=== PATIENT | male | born 1950 | race Caucasian/White ===

== ENCOUNTER 2017-02-22 12:07 | Observation (INO) ==
[2017-02-22] MEDS ORDERED: ONDANSETRON 4 MG/2 ML VIAL IV ONE (12:16)
[2017-02-22] MEDS ORDERED: 0.9 % SODIUM CHLORIDE 1,000 ML IV ONE (12:16)
[2017-02-22] MEDS: HYDROmorphone 2 MG/ML SYRINGE IV PRN ×3 (12:51→15:46)
[2017-02-22 13:01] LABS: Basophils # (Auto) 0 K/mcL (0.0-0.3); Basophils % (Auto) 0.3 % (0.0-2.0); Eosinophils # (Auto) 0.1 K/mcL (0.0-0.7); Eosinophils % (Auto) 0.4 % (0.0-7.0); Granulocytes % (Auto) 85.5 % (38.0-78.0); Lymphocytes # (Auto) 1.3 K/mcL (1.5-4.8); Lymphocytes % (Auto) 9.3 % (15.5-49.0); Mean Cell Volume 89.6 fL (80.0-100.0); Mean Corpuscular HGB Conc 33.4 g/dL (31.0-36.0); Monocytes # (Auto) 0.6 K/mcL (0.1-0.9); Monocytes % (Auto) 4.5 % (1.0-12.0); Platelet Count 274 K/mcL (140-440); RBC 4.88 M/mcL (4.50-5.90); Red Cell Distribution Width 14.1 % (11.5-14.5)
--- NOTE | 2017-02-22 13:03 | Emergency Department Note ---
Abdominal Pain HPI - General Chief Complaint: Abdominal Pain Stated Complaint: Gallbladder problems Time Seen by Provider: 02/22/17 12:15 Source: patient Mode of arrival: ambulatory Limitations: no limitations - History of Present Illness HPI Narrative: Patient presents, epigastric pain and right upper quadrant. Began several days ago, better after an ER visit in [place]. Scheduled to see general surgery, Dr. Jose on Friday. Symptoms recurred overnight, not quite as severe. Radiating across to his back. Nausea with emesis. She does better after throwing up. No hematemesis, no melena. Reports that he has a bad gallbladder. Otherwise in good health. No fevers or chills, no shortness of breath no chest pain. No history of heart disease, no blood thinning agents. - Related Data Home Medications Medication Instructions Recorded Confirmed Aspirin [Ecotrin] 81 mg PO DAILY 02/22/17 02/22/17 Lisinopril/Hctz 20/12.5MG 1 tablet PO DAILY 02/22/17 02/22/17 [Zestoretic 20/12.5MG] Meloxicam 7.5 mg PO DAILY 02/22/17 02/22/17 Metoprolol Succinate [Toprol Xl] 50 mg PO DAILY 02/22/17 02/22/17 Omeprazole [PriLOSEC] 20 mg PO ACB 02/22/17 02/22/17 Terazosin [Hytrin] 5 mg PO DAILY 02/22/17 02/22/17 Allergies Allergy/AdvReac Type Severity Reaction Status Date / Time Sulfa (Sulfonamide Allergy Unknown Itching Verified 02/22/17 12:12 Antibiotics) Review of Systems All systems ED: reviewed and negative except as stated. Abdominal Pain PMH - Past Medical History Attestation: Yes: The following information was validated with the patient. Medical history: Reports: no medical history, hypertension. Denies: coronary artery disease, diabetes Surgical history ED: Reports: appendectomy Family history: Reports: no significant family history - Social History Smoking status: Never smoker Physical Exam Limitations: no limitations General appearance: alert, anxious, in distress Head: atraumatic Eye: Present: normal appearance. Absent: scleral icterus ENT: normal exam, mucous membranes moist Neck: Present: normal inspection Chest: Present: normal inspection Respiratory: Present: normal lung sounds bilaterally. Absent: respiratory distress Cardiovascular: Present: regular rate, normal rhythm. Absent: systolic murmur Abdominal: Present: soft, tenderness, Granados's sign. Absent: distention, guarding, rebound Abdominal tenderness: Present: RUQ, epigastrium Extremities: Present: normal inspection Back: Present: normal inspection. Absent: CVA tenderness (R), CVA tenderness (L ) Neurological: Present: alert, oriented X3 Psychiatric: Present: normal affect Skin: Present: warm, dry Course Vital Signs Temperature 98.5 F 02/22/17 12:08 Pulse Rate 99 H 02/22/17 12:08 Respiratory Rate 20 02/22/17 12:08 Blood Pressure 140/88 02/22/17 12:08 Pulse Oximetry (%) 97 02/22/17 12:08 Temperature 98.5 F 02/22/17 12:08 Pulse Rate 87 02/22/17 13:27 Respiratory Rate 20 02/22/17 12:08 Blood Pressure 109/86 02/22/17 13:00 Pulse Oximetry (%) 96 02/22/17 13:27 Abdominal Pain - Lab Data Lab results reviewed: Yes I reviewed the patient's lab results. Result diagrams: 02/22/17 12:39 02/22/17 12:39 Lab Results 02/22/17 02/22/17 Range/Units 12:39 12:39 WBC 14.0 H (4.5-11.0) K/mcL RBC 4.88 (4.50-5.90) M/mcL Hgb 14.6 (13.5-16.5) g/dL Hct 43.7 (41.0-55.0) % MCV 89.6 (80.0-100.0) fL MCH 30.0 (26.0-34.0) pg MCHC 33.4 (31.0-36.0) g/dL RDW 14.1 (11.5-14.5) % Plt Count 274 (140-440) K/mcL MPV 7.7 (7.4-10.4) fL Gran % 85.5 H (38.0-78.0) % Lymph % (Auto) 9.3 L (15.5-49.0) % [place] % (Auto) 4.5 (1.0-12.0) % Eos % (Auto) 0.4 (0.0-7.0) % Baso % (Auto) 0.3 (0.0-2.0) % Gran # 12.0 H (1.8-8.0) K/mcL Lymph # (Auto) 1.3 L (1.5-4.8) K/mcL [place] # (Auto) 0.6 (0.1-0.9) K/mcL Eos # (Auto) 0.1 (0.0-0.7) K/mcL Baso # (Auto) 0 (0.0-0.3) K/mcL Sodium 138 (133-145) mmol/L Potassium 3.6 (3.3-5.1) mmol/L Chloride 99 (96-108) mmol/L Carbon Dioxide 24 (22-30) mmol/L Anion Gap 15.0 (8-16) BUN 23 (8-23) mg/dl Creatinine 0.9 (0.7-1.2) mg/dl GFR Calculation 87 Glucose 117 H (70-105) mg/dL Calcium 8.7 (8.6-10.4) mg/dl Total Bilirubin 1.6 H (0.0-1.0) mg/dL AST 33 (0-37) U/l ALT 52 H (0-40) U/l Alkaline Phosphatase 40 (39-117) U/L Total Protein 6.8 (5.9-8.4) gm/dL Albumin 4.0 (3.2-5.2) gm/dL Globulin 2.8 (2.2-3.7) gm/dL Albumin/Globulin Ratio 1.4 (1.0-2.3) Amylase 46 (28-100) U/L Lipase 31 (7-60) U/L - Radiology Data Radiology results reviewed: Yes I reviewed the patient's radiology results. large obstructing stone in GB neck; no stranding Disposition Pt seen by TRANSPORTATION CLERK/PA only: No Clinical Impression: Acute calculous cholecystitis Summary: Dr Jose, surgery aware, accepting. Planning surgery tomorrow Disposition: Xfer As Outpt/Obs ([facility]) Condition: Fair Referrals: Dylon Guerrero DO [Primary Care Provider] -
[2017-02-22 13:18] LABS: ALT/SGPT 52 U/l (0-40); Albumin/Globulin Ratio 1.4 (1.0-2.3); Alkaline Phosphatase 40 U/L (39-117); Amylase 46 U/L (28-100); Blood Urea Nitrogen 23 mg/dl (8-23); Lipase 31 U/L (7-60)
[2017-02-22] MEDS ORDERED: PROMETHAZINE 25 MG/ML VIAL IM PRN (14:34)
--- NOTE | 2017-02-22 15:06 | Ultrasound Report ---
CLINICAL INFORMATION: Right upper quadrant pain COMPARISON: None. FINDINGS: Liver is normal in size and echotexture. There are two simple cysts in the right hepatic lobe 1.8 and 3.4 cm respectively. No significant hepatic lesions. 2.1 cm solitary stone in the gallbladder neck. Gallbladder wall is normal thickness: 2 mm and there is no focal tenderness to suggest cholecystitis. Common bile duct is normal: 5 mm. No free fluid IMPRESSION: Solitary 2.1 cm stone in the gallbladder neck. No evidence of cholecystitis. Bile ducts, liver and pancreas are unremarkable Interpreted and Authenticated by: Andry Graves 02/22/17
[2017-02-22] MEDS ORDERED: PIPERACILLIN SODIUM/TAZOBACTAM 3.375 GM VIAL IV ONE (15:27)
[2017-02-22] MEDS: PIPERACILLIN SODIUM/TAZOBACTAM 3.375 GM in DEXTROSE 5% IN WATER 50 ML IV SCH ×2 (15:35→22:45)
[2017-02-22] MEDS ORDERED: PROMETHAZINE 25 MG/ML VIAL IV PRN (15:36)
[2017-02-22] MEDS ORDERED: HYDROmorphone 2 MG/ML SYRINGE IV PRN (15:49)
[2017-02-22] MEDS ORDERED: ONDANSETRON 4 MG/2 ML VIAL IV PRN (15:49)
[2017-02-22] MEDS: LACTATED RINGERS 1,000 ML IV SCH (16:32)
--- NOTE | 2017-02-22 17:58 | General Surg History&Physical ---
History of Present Illness Patient information: Note initiated : 02/22/17 at 5:56 pm Service Date, if different from initiated Date: [] Patient: Gianni Veliz a 67 y/o M admitted on 02/22/17 for Gallbladder problems. Chief Complaint: [Recurrent abdominal pain nausea and vomiting] HPI: Mr. Veliz is a 67 year old M admitted with acute cholecystitis and cholelithiasis. The patient had onset of severe abdominal pain in the late evening of 20 February 2017. He had upper abdominal pain that localized to the right upper quadrant followed by recurrent episodes of nausea and vomiting. He was seen at [facility] in [place] and was noted to have cholelithiasis with a stone impacted in the cystic duct. He was treated symptomatically and his symptoms resolved. I discussed his situation with the physicians at that facility and the plan was to see him on Friday. He developed severe abdominal pain earlier this morning and this was followed by nausea and vomiting. He was seen in the emergency room where he was noted to have a tender right upper quadrant and elevated white blood count of 14,600. He is admitted with acute cholecystitis and will need to have urgent cholecystectomy. Review of Systems - Constitutional headache(s), no fatigue, no malaise, no weight loss - EENT Nose, mouth and throat: no abnormal hearing, no dysphagia - Cardiovascular irregular heart rhythm, no chest pain with activity, no dyspnea on exertion, no palpatations, no slow heart rate - Respiratory no cough, no dyspnea on exertion, no wheezing, no chest congestion - Gastrointestinal abdominal pain, heartburn, nausea, vomiting - Genitourinary nocturia - Musculoskeletal arthralgias, back pain, joint swelling, stiffness (In the morning), no abnormal gait, no myalgias - Integumentary no new lesions, no non-healing lesions, no pruritus, no rash, no jaundice - Neurological no abnormal gait, no abnormal hearing - Psychiatric no anxiety, no confusion - Endocrine no fatigue - Hematologic/Lymphatic no easy bleeding, no easy bruising, no lymphadenopathy - Allergic/Immunologic no tongue swelling, no throat swelling, no uticaria, no wheezing, no lip swelling Past History Past medical history: Hypertension Degenerative joint disease Past surgical history: Appendectomy Past family history: Mom at age 71 due to congestive heart failure Dad age 93 due to bone cancer Past social history: Employed Never smoker Occasional beer drinker Never drug use Medications and Allergies Home Medications Medication Instructions Recorded Confirmed Type Aspirin [Ecotrin] 81 mg PO DAILY 02/22/17 02/22/17 History Lisinopril/Hctz 20/12.5MG 1 tablet PO DAILY 02/22/17 02/22/17 History [Zestoretic 20/12.5MG] Meloxicam 7.5 mg PO DAILY 02/22/17 02/22/17 History Metoprolol Succinate [Toprol Xl] 50 mg PO DAILY 02/22/17 02/22/17 History Omeprazole [PriLOSEC] 20 mg PO ACB 02/22/17 02/22/17 History Terazosin [Hytrin] 5 mg PO HS 02/22/17 02/22/17 History Allergies Allergy/AdvReac Type Severity Reaction Status Date / Time Sulfa (Sulfonamide Allergy Unknown Itching Verified 02/22/17 12:12 Antibiotics) Exam Temp Pulse Resp BP Pulse Ox 98.2 F 88 16 132/83 93 02/22/17 15:56 02/22/17 15:56 02/22/17 15:56 02/22/17 15:56 02/22/17 15:56 - General physical appearance well developed, well nourished, no distress - Eyes PERRL, normal ocular movement. negative: icteric - ENT normal pinna, normal nares, normal mucosa, no hearing loss, no congestion - Head Head exam IM: Present: atraumatic, normal inspection, normocephalic - Neck no masses, no bruits, trachea midline, no lymphadectomy, no venous distension - Cardiovascular Cardiovascular exam IM: Present: normal rate and rhythm, irregular rhythm, +S1, +S2. Absent: gallop, JVD, systolic murmur - Respiratory normal expansion, normal respiratory effort, clear to percussion, clear to auscultation - Abdomen Abdomen: Present: soft, tender (Right upper quadrant tenderness with guarding; good active bowel sounds; no palpable mass), bowel sounds Hernia: Present: none - Genitourinary Present: normal penis with no external lesions - Integumentary Present: no rash, no growths, no abnormal pigmentation - Neurologic Present: normal coordination, normal sensation - Musculoskeletal Present: normal gait, normal posture - Psychiatric Present: oriented to time, oriented to person, oriented to place, speech is normal, memory intact Assessment and Plan (1) Acute calculous cholecystitis N.p.o. after midnight Have consent signed for laparoscopic cholecystectomy Zosyn 3.375 g IV every 6 Status: Acute (2) Hypertension Continue oral antihypertensives today Status: Acute (3) Degenerative joint disease Status: Acute
--- NOTE | 2017-02-22 19:39 | XRay Report ---
CLINICAL INFORMATION: Preop COMPARISON: None. FINDINGS: Heart is at upper limits normal in size. Mediastinum and pulmonary vessels are normal. Lungs are clear. No effusions IMPRESSION: Negative Interpreted and Authenticated by: Andry Graves 02/22/17
[2017-02-23 02:34] LABS: Appearance,Urine CLEAR; Bacteria,Urine 0 /hpf (0); Bilirubin,Urine NEG (NEG); Color,Urine YELLOW; Glucose,Urine (UA) NEGATIVE (NEG); Leukocyte Esterase,Urine NEG /uL (NEG); Mucus,Urine FEW /hpf (0); Nitrate,Urine NEG (NEG); Protein,Urine NEG (NEG); Specific Gravity,Urine 1.015 (1.000-1.035); Urine Blood 0.2 mg/dL (<0.03); Urine RBC 6 /hpf (0-1); Urine Squamous Epithelial Cell 0 /hpf (0-4); Urine WBC 1 /hpf (0-4)
[2017-02-23] MEDS: PIPERACILLIN SODIUM/TAZOBACTAM 3.375 GM in DEXTROSE 5% IN WATER 50 ML IV SCH ×4 (06:00→23:37)
[2017-02-23 06:35] LABS: Basophils # (Auto) 0 K/mcL (0.0-0.3); Basophils % (Auto) 0.2 % (0.0-2.0); Eosinophils # (Auto) 0.2 K/mcL (0.0-0.7); Eosinophils % (Auto) 1.4 % (0.0-7.0); Granulocytes % (Auto) 81.6 % (38.0-78.0); Lymphocytes # (Auto) 1.4 K/mcL (1.5-4.8); Lymphocytes % (Auto) 10.7 % (15.5-49.0); Mean Cell Volume 90.9 fL (80.0-100.0); Mean Corpuscular HGB Conc 33.8 g/dL (31.0-36.0); Mean Corpuscular Hemoglobin 30.7 pg (26.0-34.0); Monocytes # (Auto) 0.8 K/mcL (0.1-0.9); Monocytes % (Auto) 6.1 % (1.0-12.0); Platelet Count 215 K/mcL (140-440); RBC 4.18 M/mcL (4.50-5.90); Red Cell Distribution Width 14.1 % (11.5-14.5)
[2017-02-23 06:49] LABS: ALT/SGPT 141 U/l (0-40); Albumin 3.3 gm/dL (3.2-5.2); Albumin/Globulin Ratio 1.4 (1.0-2.3); Alkaline Phosphatase 92 U/L (39-117); Bilirubin,Direct 0.8 mg/dL (0.0-0.3); Blood Urea Nitrogen 14 mg/dl (8-23); Gamma Glutamyl Transpeptidase 141 U/L (8-61); Magnesium 1.8 mg/dL (1.6-2.5); Uric Acid 4.2 mg/dL (2.5-8.0)
[2017-02-23] MEDS: OMEPRAZOLE 20 MG CAPSULE PO SCH (07:19)
[2017-02-23] MEDS: METOPROLOL SUCCINATE 50 MG TAB.XL.24H PO SCH (07:53)
[2017-02-23] MEDS: TERAZOSIN 5 MG CAPSULE PO SCH (07:53)
[2017-02-23] MEDS: LACTATED RINGERS 1,000 ML IV SCH ×2 (07:56→17:06)
[2017-02-23] MEDS ORDERED: PROMETHAZINE 25 MG/ML VIAL IV PRN (09:00)
[2017-02-23] MEDS ORDERED: IPRATROPIUM/ALBUTEROL 3 ML AMPUL.NEB NEB PRN (09:00)
[2017-02-23] MEDS ORDERED: MEPERIDINE 25 MG/ML SYRINGE IV PRN (09:00)
[2017-02-23] MEDS ORDERED: BENZOCAINE/MENTHOL 1 LOZENGE PO PRN (09:00)
[2017-02-23] MEDS ORDERED: KETOROLAC 15 MG/ML VIAL IV PRN (09:00)
[2017-02-23] MEDS ORDERED: METHOCARBAMOL 1,000 MG/10 ML VIAL IV PRN (09:00)
[2017-02-23] MEDS ORDERED: ONDANSETRON 4 MG/2 ML VIAL IV PRN (09:00)
[2017-02-23] MEDS ORDERED: fentaNYL 100 MCG/2 ML VIAL IV PRN (09:00)
[2017-02-23] MEDS ORDERED: ACETAMINOPHEN 1,000 MG/100 ML BOTTLE IV ONE (09:00)
[2017-02-23] MEDS ORDERED: LACTATED RINGERS 1,000 ML IV SCH (09:00)
[2017-02-23] MEDS ORDERED: MIDAZOLAM 2 MG/2 ML VIAL IV ONE (09:10)
[2017-02-23] MEDS ORDERED: PROPOFOL 200 MG/20 ML VIAL IV ONE (09:10)
[2017-02-23] MEDS ORDERED: ONDANSETRON 4 MG/2 ML VIAL IV ONE (09:10)
[2017-02-23] MEDS ORDERED: PHENYLEPHRINE 10 MG/ML VIAL IV ONE (09:10)
[2017-02-23] MEDS ORDERED: ROCURONIUM 10 MG/ML ML IV ONE (09:10)
[2017-02-23] MEDS ORDERED: GLYCOPYRROLATE 0.2 MG/ML VIAL IV ONE (09:10)
[2017-02-23] MEDS ORDERED: KETAMINE 100 MG/ML ML IV ONE (09:10)
[2017-02-23] MEDS ORDERED: LIDOCAINE HCL/PF 100 MG/5 ML SYRINGE IV ONE (09:10)
[2017-02-23] MEDS ORDERED: fentaNYL 100 MCG/2 ML VIAL IV ONE (09:10)
--- NOTE | 2017-02-23 10:06 | Brief Operative Note ---
Date of procedure: 02/23/17 Pre-op diagnosis: acute cholecystitis with cholelithiasis Post-op diagnosis: other (acute cholecystitis with cholelithiasis) Procedure: laparoscopic cholecystectomy Grafts/Implants: No (holly x 1) Anesthesia: GETA Findings: obstructed cystic duct with large stones and severe inflammation of gallbladder Complications: none Surgeon: Natalia Jose Estimated blood loss (cc): 35 Specimens Removed/Pathology: other (gallbladder) Condition: stable Disposition: PACU
[2017-02-23] MEDS: 0.9 % SODIUM CHLORIDE 10 ML SYRINGE IV SCH ×2 (13:15→20:52)
[2017-02-23] MEDS: oxyCODONE/APAP 5/325MG TABLET PO PRN ×2 (17:06→21:15)
[2017-02-23] MEDS: DOCUSATE SODIUM 100 MG CAPSULE PO SCH (20:51)
[2017-02-24] MEDS: LACTATED RINGERS 1,000 ML IV SCH ×2 (02:20→06:30)
[2017-02-24 05:02] LABS: Basophils # (Auto) 0 K/mcL (0.0-0.3); Basophils % (Auto) 0.4 % (0.0-2.0); Eosinophils # (Auto) 0.2 K/mcL (0.0-0.7); Eosinophils % (Auto) 2.7 % (0.0-7.0); Lymphocytes # (Auto) 1.4 K/mcL (1.5-4.8); Lymphocytes % (Auto) 15.5 % (15.5-49.0); Mean Cell Volume 89.9 fL (80.0-100.0); Mean Corpuscular HGB Conc 34.2 g/dL (31.0-36.0); Mean Corpuscular Hemoglobin 30.8 pg (26.0-34.0); Monocytes # (Auto) 0.8 K/mcL (0.1-0.9); Monocytes % (Auto) 8.4 % (1.0-12.0); Platelet Count 192 K/mcL (140-440)
[2017-02-24 05:15] LABS: ALT/SGPT 114 U/l (0-40); Albumin 2.7 gm/dL (3.2-5.2); Alkaline Phosphatase 79 U/L (39-117); Amylase 43 U/L (28-100); Bilirubin,Direct 1.1 mg/dL (0.0-0.3); Blood Urea Nitrogen 12 mg/dl (8-23); Gamma Glutamyl Transpeptidase 111 U/L (8-61); Lipase 35 U/L (7-60); Magnesium 1.8 mg/dL (1.6-2.5); Uric Acid 2.8 mg/dL (2.5-8.0)
[2017-02-24] MEDS: PIPERACILLIN SODIUM/TAZOBACTAM 3.375 GM in DEXTROSE 5% IN WATER 50 ML IV SCH ×2 (05:44→13:06)
[2017-02-24] MEDS: 0.9 % SODIUM CHLORIDE 10 ML SYRINGE IV SCH ×2 (05:45→13:10)
[2017-02-24] MEDS: OMEPRAZOLE 20 MG CAPSULE PO SCH (07:38)
--- NOTE | 2017-02-24 07:53 | Operative Note ---
DATE OF OPERATION: 02/22/2017 PREOPERATIVE DIAGNOSIS: Acute cholecystitis with cholelithiasis. POSTOPERATIVE DIAGNOSIS: Acute cholecystitis with cholelithiasis. PROCEDURE: Laparoscopic cholecystectomy. SURGEON: Natalia Jose MD FINDINGS: An obstructed cystic duct with multiple large stones and severe inflammation of her gallbladder. DESCRIPTION OF PROCEDURE: Under general anesthesia, the patient's abdomen was prepped and draped in a sterile field. Timeout procedure was carried out as per protocol. A supraumbilical incision was made and Veress needle was inserted uneventfully. Abdomen was insufflated with 2.5 liters of CO2. A 12 mm port was placed. Laparoscope was placed. The patient positioned in reverse Trendelenburg position. Under videoscopic guidance, a 12 mm port and two 5 mm ports were placed in the right subcostal region. The gallbladder was severely inflamed and distended. There was an area over the dome of the gallbladder where there appeared to be some necrosis on the wall. The gallbladder was grasped in position. Cystic duct was dissected followed back to the gallbladder. Cystic artery branch was dissected followed onto the wall of the gallbladder. Cystic duct was clipped with 5 clips close to the gallbladder and divided. Cystic artery was clipped with three clips on the wall of the gallbladder and divided. The gallbladder was then dissected from the intrahepatic bed using blunt dissection. There was severe inflammation. The gallbladder was placed in an Endopouch and retrieved. Irrigation in the bed was carried out. Hemostasis in the bed was achieved with electrocautery. A NEELAM drain was placed in the infrahepatic space and brought out through the most lateral port site. More irrigation was carried out. Most of the bleeding was controlled. CO2 was allowed to escape from the abdomen and the ports were removed. Fascia at the umbilicus was closed with interrupted 0 Vicryl. Skin incisions were closed with reina. NEELAM drain was secured with 2-0 nylon. Dressings were placed. He was awakened and transferred to a bed and taken to the postanesthetic care unit in stable satisfactory condition. LCS:caitlin Job ID: [id number] Doc ID: [id number] Natalia Jose M.D.
[2017-02-24] MEDS: TERAZOSIN 5 MG CAPSULE PO SCH (08:13)
[2017-02-24] MEDS: DOCUSATE SODIUM 100 MG CAPSULE PO SCH (08:13)
[2017-02-24] MEDS: METOPROLOL SUCCINATE 50 MG TAB.XL.24H PO SCH (08:13)
[2017-02-24] MEDS: oxyCODONE/APAP 5/325MG TABLET PO PRN ×2 (09:15→13:57)
--- NOTE | 2017-02-24 13:56 | Discharge Summary ---
Providers - Providers Patient information: Note initiated : 02/24/17 at 1:47 pm Service Date, if different from initiated Date: [] Patient: Gianni Veliz 67 y/o M admitted on 02/22/17 for Gallbladder Problems/ Acute Calculous Cholecystitis. Chief Complaint: [] Date of admission: 02/22/17 Discharge date: 02/24/17 Attending physician: Natalia Jose Hospitalization Hospital course: 67-year-old male with known history of cholelithiasis. Patient was originally seen at [facility] in [place], [place]. He was treated and released after confirmation that he had gallstone disease and was to be seen in the office on 24 February. He presented to the emergency room on 22 February with severe abdominal pain nausea and vomiting and leukocytosis. He had stones impacted in the cystic duct with thickening of the gallbladder wall compatible with acute cholecystitis. He underwent laparoscopic cholecystectomy on 23 February. He had elevated transaminases and bilirubin but with normal alkaline phosphatase. Follow-up MRCP postoperatively shows normal duct without filling defects. His bilirubin SGOT and SGPT are trending down and his alkaline phosphatase remains normal. The patient is stable. His white blood count has also returned to normal. He is discharged home on Levaquin and will have follow -up in the office in 2 weeks. Discharge diagnosis: Cholelithiasis with cholecystitis Reason for admission: recurrent abdominal pain with nausea and vomiting Procedures: Laparoscopic cholecystectomy Pertinent studies/significant findings: MRCP Complications: None Exam Temp Pulse Resp BP Pulse Ox 98.5 F 74 16 136/85 95 02/24/17 11:30 02/24/17 11:30 02/24/17 11:30 02/24/17 11:30 02/24/17 11:30 - General physical appearance well developed, well nourished, no distress - Eyes PERRL, normal ocular movement, icteric (Mild scleral icterus) - ENT normal pinna, normal nares, normal mucosa, no hearing loss, no congestion - Head Head exam IM: Present: atraumatic, normocephalic - Neck no masses, no bruits, trachea midline, no lymphadectomy, no venous distension - Cardiovascular Cardiovascular exam IM: Present: normal rate and rhythm - Respiratory normal expansion, normal respiratory effort, clear to percussion, clear to auscultation - Abdomen Abdomen: Present: soft, tender ( mild mild tenderness around port sites but otherwise unremarkable; NEELAM drainage is serosanguineous), bowel sounds Hernia: Present: none - Genitourinary Present: normal penis with no external lesions - Integumentary Present: no rash, no growths, no abnormal pigmentation - Neurologic Present: normal coordination, normal sensation - Musculoskeletal Present: normal gait, normal posture - Psychiatric Present: oriented to time, oriented to person, oriented to place, speech is normal, memory intact Discharge Plan - Patient/Caregiver Discharge Instructions Activity: increase activity as tolerated Diet: Regular Diet Additional Instructions: Follow-up with Dr. Sams in the office on 10 March 2017 Prescriptions: Levofloxacin [Levaquin] 500 mg PO DAILY #7 tablet oxyCODONE/APAP [Percocet 5-325 mg] 1 tab PO Q4HP PRN #30 tablet PRN Reason: Pain Level 3-6 - Follow up Plan Follow up with: Dylon Guerrero DO [Primary Care Provider] - Disposition: Home, Self-Care Prognosis: Good Rehab Potential: Good I certify that the patient requires SNF services.: No Overall status at discharge: patient is not back to baseline Pending Studies Resuscitation Status Full Code Diet Full Liquid Diet Start FriFeb 23 1013 Docusate Sodium (Colace) 100 mg PO BID [facility] Last Admin: 02/24/17 08:13 Dose: 100 mg Admin: 02/23/17 20:51 Dose: 100 mg Hydromorphone HCl (Dilaudid) 1 mg IV Q2HP PRN PRN Reason: PAIN LEVEL > 6 Last Admin: 02/23/17 06:36 Dose: 1 mg Lactated Ringer's (Lactated Ringers) 1,000 mls @ 75 mls/hr IV .[id number] [facility] Last Admin: 02/24/17 06:30 Dose: Not Given Admin: 02/24/17 02:20 Dose: 75 mls/hr Infusion: 02/23/17 21:16 Dose: 75 mls/hr Admin: 02/23/17 17:06 Dose: Not Given Admin: 02/23/17 07:56 Dose: 75 mls/hr Infusion: 02/23/17 05:52 Dose: 75 mls/hr Admin: 02/22/17 16:32 Dose: 75 mls/hr Piperacillin Sod/Tazobactam (Sod 3.375 gm/ Dextrose) 50 mls @ 100 mls/hr IV Q6H [facility] Last Admin: 02/24/17 13:06 Dose: 100 mls/hr Infusion: 02/24/17 06:14 Dose: 0 mls/hr Admin: 02/24/17 05:44 Dose: 100 mls/hr Infusion: 02/24/17 00:07 Dose: 100 mls/hr Admin: 02/23/17 23:37 Dose: 100 mls/hr Infusion: 02/23/17 18:18 Dose: 100 mls/hr Admin: 02/23/17 17:48 Dose: 100 mls/hr Infusion: 02/23/17 12:02 Dose: 100 mls/hr Admin: 02/23/17 11:32 Dose: 100 mls/hr Metoprolol Succinate (Toprol Xl) 50 mg PO DAILY [facility] Last Admin: 02/24/17 08:13 Dose: 50 mg Admin: 02/23/17 07:53 Dose: 50 mg Omeprazole (Prilosec) 20 mg PO ACB [facility] Last Admin: 02/24/17 07:38 Dose: 20 mg Admin: 02/23/17 07:19 Dose: Not Given Oxycodone/Acetaminophen (Percocet 5-325 Mg) 1 tab PO Q4HP PRN PRN Reason: PAIN LEVEL 3-6 Last Admin: 02/24/17 09:15 Dose: 1 tab Admin: 02/23/17 21:15 Dose: 1 tab Admin: 02/23/17 17:06 Dose: 1 tab Sodium Chloride (Saline Flush) 10 ml IV Q8 [facility] Last Admin: 02/24/17 13:10 Dose: 10 ml Admin: 02/24/17 05:45 Dose: 10 ml Admin: 02/23/17 20:52 Dose: Not Given Admin: 02/23/17 13:15 Dose: Not Given Terazosin HCl (Hytrin) 5 mg PO DAILY [facility] Last Admin: 02/24/17 08:13 Dose: 5 mg Admin: 02/23/17 07:53 Dose: 5 mg Shift Summary 02/24/17 04:30 Shift Summary by Jerson Roe Pt rested well tonight - in Rm. ABD pain min - last Percocet 5 (1) PO given @ 2114. No nausea this shift. Voiding QS per urinal - sl less concentrated tonight - remains orange in color. 3x ABD lap sites w/ reina - scant amt sang. drainage. NEELAM RT ABD emptied x2 this shift w/ 52ml out put total - serosang when last emptied. Patient up AMB to & from B.R. to void - stable w/o device & SBA for IV pole. He also AMB out in the hinkle @ HS 850ft - tolerated well. SCD's when in bed. Tolerated full liq dinner. VS - WNL on R.A.. LR @ 75ml/hr infusing to his RT A/C. He is calm, pleasant, & cooperative. Initialized on 02/24/17 04:30 - END OF NOTE
--- NOTE | 2017-02-24 13:59 | Magnetic Resonance Report ---
CLINICAL INFORMATION: Upper quadrant pain following recent cholecystectomy and elevated liver enzymes FINDINGS: Multiplanar imaging was performed using multiple pulse sequences. 3-D reconstructions of the bile ducts were created using MRCP. The gallbladder surgically absent. There is no abnormal fluid collection or abscess in the gallbladder fossa. There is some mild stranding of the fat near the gallbladder fossa and along the tracks through the trochars had been inserted during the laparoscopic surgery. Trace amount of free fluid is seen in the peritoneal space anterior to the medial segment of the left lobe of the liver. There are several scattered cysts throughout the liver. These appear to be benign cysts. The largest is in the right lobe and measures 3.5 cm. No solid mass is seen within the liver and there is no evidence of fatty infiltration cirrhosis or acute hepatitis. The intra and extrahepatic bile ducts are normal in caliber without evidence of obstruction or intraluminal stone. There is no evidence of a bile leak. The spleen is normal in size and homogeneous. No abnormality seen within the pancreas or adrenals. There are a few simple cysts in both kidneys. The kidneys are otherwise normal. Small bilateral layering pleural effusions are noted. IMPRESSION: Normal postoperative changes following recent laparoscopic cholecystectomy. Scattered simple cysts in the liver and both kidneys Interpreted and Authenticated by: Price Pickens 02/24/17
--- NOTE | 2017-02-25 13:13 | Surgical Pathology Report ---
HISTOLOGY SPECIMEN MICROSCOPIC DIAGNOSIS GALLBLADDER, CHOLECYSTECTOMY: -- NECROTIZING ACUTE AND CHRONIC CHOLECYSTITIS. (DMT:pema) PROCEDURAL IMPRESSION Acute calculous cholecystitis. GROSS DESCRIPTION Received in formalin labeled gallbladder, is an 8.5 x 3.6 x 2.8 cm purple-benitez gallbladder. The serosal surface is smooth and glistening. There are two metal clips present, however the duct is not clipped. The lumen contains viscous yellow-brown fluid and yellow-green mucinous material. This is into two cavities by 0.5 cm thick wall. The mucosa is green-clifton and velvety. The wall is up to 1.4 cm thick. No stones or gross lesions are identified. Property Field Inspector sections submitted - three cassettes. (STM:sln) Electronically Signed by: Johnson Gordon M.D.
== END 2017-02-24 15:20 | disposition home or self-care (01) ==
LOC: MEDSUR 12:07 → ED 12:07 → MEDSUR 15:50
PROVIDERS: ADMIT Family Medicine Adult Medicine; ATTEND Family Medicine Adult Medicine